=== PATIENT | female | born 1940 | race Caucasian/White ===

== ENCOUNTER 2018-01-20 13:48 | Emergency (ER) | payer OTHER ==
[~2018-01-20] VITALS: Ht 154.9 cm; Wt 54.0 kg
[~2018-01-20 13:48] MED LIST: BUPR150F3 SL; ESTR2TAB PO; FURO40TA4 PO; GABA-534 PO; LEVO25TA7 PO; METO5TAB98 PO; MUPI22OI30 TOP; OMEP20CA10 PO; OXYB5TAB11 PO; PHE25R PR; POLY17PO10 PO; RANI300T4 PO
[2018-01-20] MEDS ORDERED: magnesium citrate 296ml oral solution PO ONE (14:15)
[2018-01-20 15:04] VITALS: BP 126/75
== END 2018-01-20 15:22 | disposition home or self-care (01) ==
LOC: ER 13:49
DX: K59.00 Constipation, unspecified (principal); F11.20 Opioid dependence, uncomplicated; I10 Essential (primary) hypertension; G89.29 Other chronic pain; Z90.49 Acquired absence of other specified parts of digestive tract; Z90.710 Acquired absence of both cervix and uterus; Z88.5 Allergy status to narcotic agent; Z88.2 Allergy status to sulfonamides; Z98.890 Other specified postprocedural states
CPT/HCPCS: 74018; 99283

== ENCOUNTER 2018-05-10 00:27 | Emergency (ER) | payer OTHER ==
[~2018-05-10] VITALS: Ht 154.9 cm; Wt 48.8 kg
[2018-05-10] MEDS ORDERED: normal saline 1000ML IV soln IVB ONE (02:40)
[2018-05-10] MEDS ORDERED: ondansetron/PF 4mg/2ml inj IV ONE (02:40)
[2018-05-10] MEDS ORDERED: diphenoxylate/atropine tablet (Lomotil) PO ONE (02:40)
[2018-05-10 03:30] LABS: BASOPHILS % (AUTO) 0.6 % (0-1); EOSINOPHILS # (AUTO) 0.2 X10'3 (0-0.9); EOSINOPHILS % (AUTO) 3.9 % (0-6); HEMATOCRIT 32.2 % (35.0-45.0); HEMOGLOBIN 10.7 g/dl (12.0-16.0); LYMPHOCYTES # (AUTO) 2.2 X10'3 (1.1-4.8); LYMPHOCYTES % (AUTO) 48.7 % (21-51); MEAN CORPUSCULAR HEMOGLOBIN 31.7 PG (27.0-31.0); MEAN CORPUSCULAR HGB CONC 33.4 % (33.0-36.5); MEAN PLATELET VOLUME 8.5 FL (7.4-10.4); MONOCYTES # (AUTO) 0.5 X10'3 (0-0.9); MONOCYTES % (AUTO) 11.8 % (2-12); NEUTROPHILS # (AUTO) 1.6 X10'3 (1.8-7.7); PLATELET COUNT 242 X10'3 (140-440); RED BLOOD COUNT 3.38 X10'6 (4.20-5.60); RED CELL DISTRIBUTION WIDTH 13.4 % (11.5-14.5); WHITE BLOOD COUNT 4.6 X10'3 (4.5-11.0)
[2018-05-10 03:45] LABS: ALANINE AMINOTRANSFERASE 20 U/L (12-78); ALBUMIN/GLOBULIN RATIO 1.3 (1.1-1.5); ALKALINE PHOSPHATASE 75 IU/L (46-116); ANION GAP 4 (8-16); ASPARTATE AMINO TRANSFERASE 17 U/L (10-37); BILIRUBIN,TOTAL 0.2 MG/DL (0.1-1.0); BLOOD UREA NITROGEN 9 MG/DL (7-18); CALCIUM 7.9 MG/DL (8.5-10.1); CHLORIDE 107 MMOL/L (99-107); CREATININE 0.82 MG/DL (0.40-0.90); GLUCOSE 91 MG/DL (70-104); LIPASE 157 U/L (73-393); POTASSIUM 3.8 MMOL/L (3.5-5.1); SODIUM 138 MMOL/L (135-145); TOTAL CARBON DIOXIDE 26.7 MMOL/L (24-32); TOTAL PROTEIN 5.3 G/DL (6.4-8.2); eGFR 68 ML/MIN
[2018-05-10 04:36] VITALS: BP 111/59
== END 2018-05-10 05:21 | disposition home or self-care (01) ==
LOC: ER 00:27
DX: R19.7 Diarrhea, unspecified (principal); G89.29 Other chronic pain; I10 Essential (primary) hypertension; M19.90 Unspecified osteoarthritis, unspecified site; Z87.442 Personal history of urinary calculi; Z90.49 Acquired absence of other specified parts of digestive tract; Z90.710 Acquired absence of both cervix and uterus; Z98.890 Other specified postprocedural states; Z98.51 Tubal ligation status; Z87.891 Personal history of nicotine dependence; Z88.2 Allergy status to sulfonamides; Z88.6 Allergy status to analgesic agent; Z88.5 Allergy status to narcotic agent; Z79.899 Other long term (current) drug therapy
CPT/HCPCS: 36415; 80053; 83690; 85025; 96361; 96374; 99284; J2405; J7030

== ENCOUNTER 2019-01-01 10:28 | Emergency (ER) | payer OTHER ==
[~2019-01-01] VITALS: Ht 154.9 cm; Wt 50.0 kg
[~2019-01-01 10:28] MED LIST changes: +GABA-532 PO; +ONDA4TAB6 PO; +QUET400T PO
[2019-01-01] MEDS ORDERED: ketorolac trometh. 30mg/ml inj. IV ONE (13:00)
[2019-01-01] MEDS ORDERED: buprenorphine/naloxone 8mg/2mg SL tablet SL PRN (13:05)
[2019-01-01] MEDS ORDERED: ONDA4TAB6 PO (13:21)
[2019-01-01] MEDS ORDERED: TRAZ-218 PO (13:21)
[2019-01-01] MEDS ORDERED: CLON0.2T PO (13:21)
[2019-01-01] MEDS ORDERED: IBUP-1984 PO (13:21)
[2019-01-01 13:33] VITALS: BP 153/80
== END 2019-01-01 13:35 | disposition home or self-care (01) ==
LOC: ER 10:29
DX: G89.29 Other chronic pain (principal); M54.6 Pain in thoracic spine; M54.5 Low back pain; I10 Essential (primary) hypertension; M19.90 Unspecified osteoarthritis, unspecified site; Z87.442 Personal history of urinary calculi; Z90.49 Acquired absence of other specified parts of digestive tract; Z90.710 Acquired absence of both cervix and uterus; Z98.890 Other specified postprocedural states; Z98.51 Tubal ligation status; Z88.2 Allergy status to sulfonamides; Z88.5 Allergy status to narcotic agent; Z88.8 Allergy status to other drugs, medicaments and biological substances; Z79.899 Other long term (current) drug therapy
CPT/HCPCS: 96374; 99283; J1885

== ENCOUNTER 2019-01-10 07:42 | Emergency (ER) | payer OTHER ==
[~2019-01-10] VITALS: Ht 154.9 cm; Wt 50.2 kg
[~2019-01-10 07:42] MED LIST changes: +CLON0.2T PO; +IBUP-1984 PO; +TRAZ-218 PO
[2019-01-10] MEDS ORDERED: morphine 4 MG/ML inj SYRINge IV ONE (08:15)
[2019-01-10] MEDS ORDERED: normal saline 1000ML IV soln IVB ONE (08:15)
[2019-01-10] MEDS ORDERED: ondansetron/PF 4mg/2ml inj IV ONE (08:15)
--- NOTE | 2019-01-10 08:28 | NUR ---
Pt to CT via wheelchair
[2019-01-10 08:51] LABS: BASOPHILS # (AUTO) 0.1 X10'3 (0-0.2); EOSINOPHILS # (AUTO) 0.4 X10'3 (0-0.9); EOSINOPHILS % (AUTO) 6.9 % (0-6); HEMATOCRIT 37.8 % (35.0-45.0); HEMOGLOBIN 12.6 g/dl (12.0-16.0); LYMPHOCYTES # (AUTO) 3.1 X10'3 (1.1-4.8); LYMPHOCYTES % (AUTO) 60.2 % (21-51); MEAN CORPUSCULAR HEMOGLOBIN 31.5 PG (27.0-31.0); MEAN CORPUSCULAR HGB CONC 33.3 g/dL (33.0-36.5); MEAN CORPUSCULAR VOLUME 94.7 FL (78-98); MEAN PLATELET VOLUME 10.3 FL (7.4-10.4); MONOCYTES # (AUTO) 0.5 X10'3 (0-0.9); MONOCYTES % (AUTO) 9.2 % (2-12); NEUTROPHILS # (AUTO) 1.2 X10'3 (1.8-7.7); NEUTROPHILS % (AUTO) 22.7 % (42-75); PLATELET COUNT 203 X10'3 (140-440); RED BLOOD COUNT 3.99 X10'6 (4.20-5.60); RED CELL DISTRIBUTION WIDTH 13.3 % (11.5-14.5); WHITE BLOOD COUNT 5.1 X10'3 (4.5-11.0)
[2019-01-10] MEDS ORDERED: magnesium citrate 296ml oral solution PO ONE (08:55)
[2019-01-10 09:01] LABS: ALANINE AMINOTRANSFERASE 16 U/L (12-78); ALBUMIN 3.6 G/DL (3.4-5.0); ALBUMIN/GLOBULIN RATIO 1.2 (1.1-1.5); ALKALINE PHOSPHATASE 91 IU/L (46-116); ANION GAP 9 (8-16); ASPARTATE AMINO TRANSFERASE 23 U/L (10-37); BILIRUBIN,TOTAL 0.2 MG/DL (0.1-1.0); BLOOD UREA NITROGEN 15 MG/DL (7-18); BUN/CREATININE RATIO 16.7 (6.6-38.0); CALCIUM 8.9 MG/DL (8.5-10.1); CHLORIDE 104 MMOL/L (99-107); GLUCOSE 93 MG/DL (70-104); LIPASE 125 U/L (73-393); POTASSIUM 4.3 MMOL/L (3.5-5.1); SODIUM 140 MMOL/L (135-145); TOTAL CARBON DIOXIDE 27.4 MMOL/L (24-32); TOTAL PROTEIN 6.5 G/DL (6.4-8.2); eGFR 61 ML/MIN
[2019-01-10 09:04] LABS: CLARITY,URINE CLEAR (Clear); COLOR,URINE YELLOW (Yellow); GLUCOSE, URINE NEGATIVE (Neg); KETONES,URINE NEGATIVE (Neg); LEUKOCYTE ESTERASE ,URINE NEGATIVE (Neg); NITRITES, URINE NEGATIVE (Neg); OCCULT BLOOD,URINE NEGATIVE (Neg); PROTEIN,URINE NEGATIVE (Neg); UROBILINOGEN,URINE 0.2 E.U/dL (0.2-1.0)
[2019-01-10 09:07] LABS: INR 0.9 INR; PARTIAL THROMBOPLASTIN TIME 27 SECONDS (22-32)
[2019-01-10 09:11] LABS: UA COLLECTION TYPE CLN CATCH MIDSTREAM
[2019-01-10] MEDS ORDERED: POLY17PO10 PO (09:27)
[2019-01-10 10:00] VITALS: BP 140/72
== END 2019-01-10 10:03 | disposition home or self-care (01) ==
LOC: ER 07:43
DX: R10.84 Generalized abdominal pain (principal); I10 Essential (primary) hypertension; M19.90 Unspecified osteoarthritis, unspecified site; G89.29 Other chronic pain; Z87.11 Personal history of peptic ulcer disease; Z90.49 Acquired absence of other specified parts of digestive tract; Z90.710 Acquired absence of both cervix and uterus; Z98.890 Other specified postprocedural states; Z98.51 Tubal ligation status; Z88.2 Allergy status to sulfonamides; Z88.5 Allergy status to narcotic agent; Z88.6 Allergy status to analgesic agent; Z88.8 Allergy status to other drugs, medicaments and biological substances
CPT/HCPCS: 36415; 74176; 80053; 81003; 83690; 85025; 85610; 85730; 93005; 96374; 96375; 99284; J2270; J2405; J7030

== ENCOUNTER 2019-02-23 15:38 | Emergency (ER) | payer OTHER ==
[~2019-02-23] VITALS: Ht 154.9 cm; Wt 54.1 kg
[~2019-02-23 15:38] MED LIST changes: -IBUP-1984 PO; -OMEP20CA10 PO; +OMEP20CA11 PO; -TRAZ-218 PO; +TRAZ-251 PO
[2019-02-23 16:04] VITALS: BP 122/66
[2019-02-23] MEDS ORDERED: GABA300C PO (16:09)
== END 2019-02-23 16:22 | disposition home or self-care (01) ==
LOC: ER 15:39
DX: G40.909 Epilepsy, unspecified, not intractable, without status epilepticus (principal); Z76.0 Encounter for issue of repeat prescription; I10 Essential (primary) hypertension; M19.90 Unspecified osteoarthritis, unspecified site; G89.29 Other chronic pain; Z98.51 Tubal ligation status; Z90.49 Acquired absence of other specified parts of digestive tract; Z90.710 Acquired absence of both cervix and uterus; Z98.890 Other specified postprocedural states; Z88.2 Allergy status to sulfonamides; Z88.5 Allergy status to narcotic agent; Z88.8 Allergy status to other drugs, medicaments and biological substances; Z79.899 Other long term (current) drug therapy
CPT/HCPCS: 99283

== ENCOUNTER 2019-03-02 19:25 | Emergency (ER) | payer OTHER ==
[~2019-03-02] VITALS: Ht 154.9 cm; Wt 49.5 kg
[~2019-03-02 19:25] MED LIST changes: +GABA300C PO
[2019-03-02 19:36] VITALS: BP 122/76
== END 2019-03-02 20:36 | disposition home or self-care (01) ==
LOC: ER 19:28
DX: G89.29 Other chronic pain (principal); M54.9 Dorsalgia, unspecified; Z76.0 Encounter for issue of repeat prescription; I10 Essential (primary) hypertension; M19.90 Unspecified osteoarthritis, unspecified site; Z90.49 Acquired absence of other specified parts of digestive tract; Z90.710 Acquired absence of both cervix and uterus; Z98.890 Other specified postprocedural states; Z98.51 Tubal ligation status; Z88.2 Allergy status to sulfonamides; Z88.5 Allergy status to narcotic agent; Z88.8 Allergy status to other drugs, medicaments and biological substances; Z79.899 Other long term (current) drug therapy
CPT/HCPCS: 99281

== ENCOUNTER 2019-11-02 06:50 | Emergency (ER) | payer OTHER ==
[~2019-11-02] VITALS: Ht 154.9 cm; Wt 47.7 kg
[~2019-11-02 06:50] MED LIST changes: -OMEP20CA11 PO; +OMEP20CA15 PO; -OXYB5TAB11 PO; +OXYB5TAB16 PO
[2019-11-02] MEDS ORDERED: normal saline 1000ml 1,000 ML IV ONE (06:57)
[2019-11-02 07:30] LABS: BASOPHILS % (AUTO) 0.6 % (0-1); EOSINOPHILS # (AUTO) 0.2 X10'3 (0-0.9); EOSINOPHILS % (AUTO) 4.4 % (0-6); HEMATOCRIT 39.7 % (35.0-45.0); HEMOGLOBIN 13.4 g/dl (12.0-16.0); LYMPHOCYTES # (AUTO) 2.9 X10'3 (1.1-4.8); LYMPHOCYTES % (AUTO) 54.5 % (21-51); MEAN CORPUSCULAR HEMOGLOBIN 31.4 PG (27.0-31.0); MEAN CORPUSCULAR HGB CONC 33.8 g/dL (33.0-36.5); MEAN CORPUSCULAR VOLUME 92.9 FL (78-98); MEAN PLATELET VOLUME 9.2 FL (7.4-10.4); MONOCYTES # (AUTO) 0.5 X10'3 (0-0.9); MONOCYTES % (AUTO) 9.2 % (2-12); NEUTROPHILS # (AUTO) 1.7 X10'3 (1.8-7.7); NEUTROPHILS % (AUTO) 31.3 % (42-75); PLATELET COUNT 263 X10'3 (140-440); RED BLOOD COUNT 4.27 X10'6 (4.20-5.60); RED CELL DISTRIBUTION WIDTH 13.6 % (11.5-14.5); WHITE BLOOD COUNT 5.4 X10'3 (4.5-11.0)
[2019-11-02 07:40] LABS: ALANINE AMINOTRANSFERASE 17 U/L (12-78); ALBUMIN 3.4 G/DL (3.4-5.0); ALBUMIN/GLOBULIN RATIO 1.1 (1.1-1.5); ALKALINE PHOSPHATASE 105 IU/L (46-116); ANION GAP 5 (8-16); ASPARTATE AMINO TRANSFERASE 23 U/L (10-37); BILIRUBIN,TOTAL 0.1 MG/DL (0.1-1.0); BLOOD UREA NITROGEN 19 MG/DL (7-18); BUN/CREATININE RATIO 23.5 (6.6-38.0); CALCIUM 8.3 MG/DL (8.5-10.1); CHLORIDE 104 MMOL/L (99-107); CREATININE 0.81 MG/DL (0.40-0.90); GLUCOSE 100 MG/DL (70-104); POTASSIUM 3.8 MMOL/L (3.5-5.1); SODIUM 141 MMOL/L (135-145); TOTAL CARBON DIOXIDE 32.5 MMOL/L (24-32); TOTAL PROTEIN 6.6 G/DL (6.4-8.2); eGFR 68 ML/MIN
[2019-11-02 07:43] LABS: PARTIAL THROMBOPLASTIN TIME 26 SECONDS (22-32)
[2019-11-02 08:08] LABS: CLARITY,URINE CLEAR (Clear); COLOR,URINE YELLOW (Yellow); GLUCOSE, URINE NEGATIVE (Neg); KETONES,URINE NEGATIVE (Neg); LEUKOCYTE ESTERASE ,URINE NEGATIVE (Neg); NITRITES, URINE NEGATIVE (Neg); OCCULT BLOOD,URINE NEGATIVE (Neg); PH,URINE 6.5 (4.8-8.0); PROTEIN,URINE NEGATIVE (Neg); UA COLLECTION TYPE STRAIGHT CATH; UROBILINOGEN,URINE 0.2 E.U/dL (0.2-1.0)
[2019-11-02] MEDS ORDERED: normal saline 1000ML IV soln IVB ONE (08:40)
[2019-11-02] MEDS ORDERED: bisacodyl 10mg suppository rectal RC ONE (08:40)
[2019-11-02 08:45] LABS: TOTAL CELLS COUNTED 100
[2019-11-02] MEDS ORDERED: methylnaltrexone br 12mg/0.6ml inj***SubQ only SQ ONE (08:45)
[2019-11-02] MEDS ORDERED: magnesium citrate 296ml oral solution PO ONE (08:45)
[2019-11-02 08:54] LABS: PLATELET ESTIMATE NORMAL
[2019-11-02 09:07] LABS: URINE AMPHETAMINE SCREEN NEGATIVE (Neg); URINE BARBITUATE SCREEN NEGATIVE (Neg); URINE BENZODIAZEPINES SCREEN NEGATIVE (Neg); URINE CANNABINOID SCREEN NEGATIVE (Neg); URINE COCAINE SCREEN NEGATIVE (Neg); URINE METHADONE SCREEN NEGATIVE (Neg); URINE OPIATE SCREEN NEGATIVE (Neg); URINE PHENCYCLIDINE SCREEN NEGATIVE (Neg)
--- NOTE | 2019-11-02 11:31 | NUR ---
.Notified AFSHIN Li pt successful with BM attempt. She c/o nausea;new order for Zofran received
[2019-11-02] MEDS ORDERED: ondansetron/PF 4mg/2ml inj IV ONE ×2 (11:35)
[2019-11-02 11:56] VITALS: BP 115/71
== END 2019-11-02 11:58 | disposition home or self-care (01) ==
LOC: ER 06:53
DX: K59.00 Constipation, unspecified (principal); R10.30 Lower abdominal pain, unspecified; R30.0 Dysuria; G89.29 Other chronic pain; I10 Essential (primary) hypertension; M19.90 Unspecified osteoarthritis, unspecified site; Z87.442 Personal history of urinary calculi; Z90.49 Acquired absence of other specified parts of digestive tract; Z90.710 Acquired absence of both cervix and uterus; Z98.51 Tubal ligation status; Z98.890 Other specified postprocedural states; Z88.2 Allergy status to sulfonamides; Z88.5 Allergy status to narcotic agent; Z88.8 Allergy status to other drugs, medicaments and biological substances; Z79.899 Other long term (current) drug therapy
CPT/HCPCS: 36415; 74018; 80053; 80305; 81003; 85025; 85610; 85730; 96372; 96374; 99284; J2212; J2405; J7030

== ENCOUNTER 2019-11-04 10:53 | Emergency (ER) | payer OTHER ==
[~2019-11-04] VITALS: Ht 154.9 cm; Wt 47.4 kg
[2019-11-04 12:04] LABS: CLARITY,URINE CLEAR (Clear); COLOR,URINE YELLOW (Yellow); GLUCOSE, URINE NEGATIVE (Neg); KETONES,URINE NEGATIVE (Neg); LEUKOCYTE ESTERASE ,URINE TRACE (Neg); NITRITES, URINE NEGATIVE (Neg); OCCULT BLOOD,URINE TRACE-INTACT (Neg); PH,URINE 7.5 (4.8-8.0); PROTEIN,URINE NEGATIVE (Neg); UROBILINOGEN,URINE 0.2 E.U/dL (0.2-1.0)
[2019-11-04 12:09] LABS: UA COLLECTION TYPE CLN CATCH MIDSTREAM
[2019-11-04 12:12] LABS: BACTERIA,URINE 1+ /HPF (Neg); MUCUS STRANDS NONE SEEN /LPF (Neg); RBC,URINE 0-2 /HPF (0-2); SQUAMOUS EPITHELIAL CELL,UR MODERATE /LPF (FEW); WBC,URINE 0-4 /HPF (0-4)
[2019-11-04 12:13] LABS: YEAST FEW /HPF (NEGATIVE)
[2019-11-04] MEDS ORDERED: mag hydrox/Alum hydrox/simeth 30ml oral suspension PO ONE (12:35)
[2019-11-04] MEDS ORDERED: famotidine 20mg tablet PO ONE (12:35)
[2019-11-04] MEDS ORDERED: QUET400T PO (12:37)
[2019-11-04] MEDS ORDERED: LIDOcaine Viscous 15ml cup MM PRN (12:45)
[2019-11-04] MEDS ORDERED: SUCR1TAB34 PO (13:17)
[2019-11-04 13:45] VITALS: BP 139/98
== END 2019-11-04 13:47 | disposition home or self-care (01) ==
LOC: ER 10:53
DX: K29.70 Gastritis, unspecified, without bleeding (principal); I10 Essential (primary) hypertension; M19.90 Unspecified osteoarthritis, unspecified site; G89.29 Other chronic pain; F41.9 Anxiety disorder, unspecified; Z90.49 Acquired absence of other specified parts of digestive tract; Z98.890 Other specified postprocedural states; Z90.710 Acquired absence of both cervix and uterus; Z98.51 Tubal ligation status; Z88.2 Allergy status to sulfonamides; Z88.5 Allergy status to narcotic agent; Z88.8 Allergy status to other drugs, medicaments and biological substances; Z79.899 Other long term (current) drug therapy
CPT/HCPCS: 74018; 81001; 87088; 99284

== ENCOUNTER 2020-06-25 14:52 | Emergency (ER) | payer OTHER ==
[~2020-06-25] VITALS: Ht 154.9 cm; Wt 46.4 kg
[~2020-06-25 14:52] MED LIST changes: +SUCR1TAB34 PO
[2020-06-25 15:13] VITALS: BP 117/53
[2020-06-25] MEDS ORDERED: HYDR-4383 PO (16:08)
== END 2020-06-25 16:26 | disposition home or self-care (01) ==
LOC: ER 14:53
DX: S46.219A Strain of muscle, fascia and tendon of other parts of biceps, unspecified arm, initial encounter (principal); I10 Essential (primary) hypertension; M19.90 Unspecified osteoarthritis, unspecified site; G89.29 Other chronic pain; F41.9 Anxiety disorder, unspecified; Z90.49 Acquired absence of other specified parts of digestive tract; Z90.710 Acquired absence of both cervix and uterus; Z98.890 Other specified postprocedural states; Z88.2 Allergy status to sulfonamides; Z88.5 Allergy status to narcotic agent; Z88.8 Allergy status to other drugs, medicaments and biological substances; Z79.899 Other long term (current) drug therapy
CPT/HCPCS: 99282; 99283

== ENCOUNTER 2020-10-06 15:20 | Emergency (ER) | payer OTHER ==
[~2020-10-06] VITALS: Ht 154.9 cm; Wt 46.4 kg
[~2020-10-06 15:20] MED LIST changes: +HYDR-4383 PO
[2020-10-06 17:25] VITALS: BP 140/56
== END 2020-10-06 17:14 | disposition home or self-care (01) ==
LOC: ER 15:21
DX: M54.81 Occipital neuralgia (principal); I10 Essential (primary) hypertension; M19.90 Unspecified osteoarthritis, unspecified site; G89.29 Other chronic pain; F41.9 Anxiety disorder, unspecified; Z87.442 Personal history of urinary calculi; Z90.49 Acquired absence of other specified parts of digestive tract; Z90.710 Acquired absence of both cervix and uterus; Z98.890 Other specified postprocedural states; Z98.51 Tubal ligation status; Z88.2 Allergy status to sulfonamides; Z88.5 Allergy status to narcotic agent; Z88.8 Allergy status to other drugs, medicaments and biological substances; Z79.899 Other long term (current) drug therapy
CPT/HCPCS: 20552; 36415; 64405; 85651; 99284

== ENCOUNTER 2021-01-16 15:34 | Emergency (ER) | payer OTHER ==
[~2021-01-16] VITALS: Ht 154.9 cm; Wt 47.0 kg
[2021-01-16 16:10] VITALS: BP 126/74
[2021-01-16] MEDS ORDERED: acetaminophen 325mg tablet PO ONE (17:25)
== END 2021-01-16 17:43 | disposition home or self-care (01) ==
LOC: ER 15:35
DX: R51.9 Headache, unspecified (principal); I10 Essential (primary) hypertension; M19.90 Unspecified osteoarthritis, unspecified site; G89.29 Other chronic pain; F41.9 Anxiety disorder, unspecified; Z87.11 Personal history of peptic ulcer disease; Z87.442 Personal history of urinary calculi; Z87.440 Personal history of urinary (tract) infections; Z90.89 Acquired absence of other organs; Z90.49 Acquired absence of other specified parts of digestive tract; Z90.710 Acquired absence of both cervix and uterus; Z98.890 Other specified postprocedural states; Z88.2 Allergy status to sulfonamides; Z88.5 Allergy status to narcotic agent; Z88.1 Allergy status to other antibiotic agents; Z98.51 Tubal ligation status; Z79.899 Other long term (current) drug therapy
CPT/HCPCS: 20552; 99284

== ENCOUNTER 2021-05-22 15:36 | Emergency (ER) | payer OTHER ==
[~2021-05-22] VITALS: Ht 154.9 cm; Wt 46.0 kg
[2021-05-22 16:08] VITALS: BP 130/90
[2021-05-22] MEDS ORDERED: VALA100031 PO (16:15)
== END 2021-05-22 16:31 | disposition home or self-care (01) ==
LOC: ER 15:37
DX: B02.9 Zoster without complications (principal); I10 Essential (primary) hypertension; M19.90 Unspecified osteoarthritis, unspecified site; G89.29 Other chronic pain; Z87.11 Personal history of peptic ulcer disease; Z87.440 Personal history of urinary (tract) infections; Z87.442 Personal history of urinary calculi; Z90.49 Acquired absence of other specified parts of digestive tract; Z90.710 Acquired absence of both cervix and uterus; Z98.82 Breast implant status; Z88.2 Allergy status to sulfonamides; Z88.8 Allergy status to other drugs, medicaments and biological substances; Z79.899 Other long term (current) drug therapy
CPT/HCPCS: 99283

== ENCOUNTER 2021-07-06 17:44 | Emergency (ER) | payer OTHER ==
[~2021-07-06] VITALS: Ht 154.9 cm; Wt 47.7 kg
[~2021-07-06 17:44] MED LIST changes: -ESTR2TAB PO; +ESTR2TAB50 PO; +VALA100031 PO
[2021-07-06 17:55] VITALS: BP 150/69
== END 2021-07-06 20:17 | disposition home or self-care (01) ==
LOC: ER 17:45
DX: S63.502A Unspecified sprain of left wrist, initial encounter (principal); S09.90XA Unspecified injury of head, initial encounter; S60.512A Abrasion of left hand, initial encounter; M25.532 Pain in left wrist; I10 Essential (primary) hypertension; M19.90 Unspecified osteoarthritis, unspecified site; G89.29 Other chronic pain; F41.9 Anxiety disorder, unspecified; Z87.11 Personal history of peptic ulcer disease; Z87.442 Personal history of urinary calculi; Z87.440 Personal history of urinary (tract) infections; Z90.89 Acquired absence of other organs; Z90.49 Acquired absence of other specified parts of digestive tract; Z90.710 Acquired absence of both cervix and uterus; Z98.890 Other specified postprocedural states; Z98.51 Tubal ligation status; Z88.2 Allergy status to sulfonamides; Z88.5 Allergy status to narcotic agent; Z88.1 Allergy status to other antibiotic agents; Z79.2 Long term (current) use of antibiotics; Z79.899 Other long term (current) drug therapy; W18.09XA Striking against other object with subsequent fall, initial encounter; Y93.89 Activity, other specified; Y92.89 Other specified places as the place of occurrence of the external cause; Y99.8 Other external cause status
CPT/HCPCS: 29125; 70450; 72125; 73110; 99285

== ENCOUNTER 2022-04-23 19:45 | Emergency (ER) | payer OTHER, MEDICARE ==
[~2022-04-23] VITALS: Ht 154.9 cm; Wt 47.7 kg
[2022-04-23 20:07] VITALS: BP 132/112
[2022-04-23] MEDS ORDERED: ondansetron/PF 4mg/2ml inj IV ONE (20:55)
[2022-04-23] MEDS ORDERED: buprenorphine/naloxone 8MG-2MG SUBlingual film SL STA ×2 (22:09→22:23)
[2022-04-23] MEDS ORDERED: gabapentin 300mg capsule PO ONE (22:10)
[2022-04-23] MEDS ORDERED: GABA600T PO (22:14)
== END 2022-04-24 04:14 | disposition home or self-care (01) ==
LOC: ER 19:46
DX: F11.23 Opioid dependence with withdrawal (principal); I10 Essential (primary) hypertension; M19.90 Unspecified osteoarthritis, unspecified site; G89.29 Other chronic pain; M54.50 Low back pain, unspecified; Z76.0 Encounter for issue of repeat prescription; Z88.2 Allergy status to sulfonamides; Z88.5 Allergy status to narcotic agent; Z88.6 Allergy status to analgesic agent; Z98.890 Other specified postprocedural states; Z90.49 Acquired absence of other specified parts of digestive tract; Z90.710 Acquired absence of both cervix and uterus; Z98.51 Tubal ligation status
CPT/HCPCS: 96374; 99284; J2405; A4620

== ENCOUNTER 2023-04-05 08:33 | Emergency (ER) | payer OTHER ==
[~2023-04-05] VITALS: Ht 154.9 cm; Wt 48.0 kg
[~2023-04-05 08:33] MED LIST changes: +GABA600T PO
[2023-04-05 08:37] VITALS: BP 91/74
[2023-04-05] MEDS ORDERED: mupirocin 2% ointment 22GM TP STA (09:16)
[2023-04-05] MEDS ORDERED: MUPI22OI30 TOP (09:24)
== END 2023-04-05 10:25 | disposition home or self-care (01) ==
LOC: ER 08:34
DX: T21.11XA Burn of first degree of chest wall, initial encounter (principal); I10 Essential (primary) hypertension; M19.90 Unspecified osteoarthritis, unspecified site; Z88.2 Allergy status to sulfonamides; Z88.5 Allergy status to narcotic agent; Z90.710 Acquired absence of both cervix and uterus; Z98.51 Tubal ligation status; Z98.890 Other specified postprocedural states; X10.1XXA Contact with hot food, initial encounter; Y93.89 Activity, other specified; Y92.89 Other specified places as the place of occurrence of the external cause; Y99.8 Other external cause status
CPT/HCPCS: 16000; 99283

== ENCOUNTER 2023-05-03 18:48 | Emergency (ER) | payer OTHER ==
[~2023-05-03] VITALS: Ht 154.9 cm; Wt 109.2 kg
[~2023-05-03 18:48] MED LIST changes: -GABA-534 PO; +GABA-535 PO
[2023-05-03 19:57] VITALS: TEMP 98.3
[2023-05-03 20:35] LABS: BASOPHILS % (AUTO) 0.4 % (0-1); EOSINOPHILS % (AUTO) 0.6 % (0-6); HEMATOCRIT 34.1 % (35.0-45.0); HEMOGLOBIN 11.3 g/dl (12.0-16.0); LYMPHOCYTES # (AUTO) 0.7 X10'3 (1.1-4.8); LYMPHOCYTES % (AUTO) 14.4 % (21-51); MEAN CORPUSCULAR HEMOGLOBIN 30.8 PG (27.0-31.0); MEAN CORPUSCULAR HGB CONC 33.2 g/dL (33.0-36.5); MEAN CORPUSCULAR VOLUME 92.7 FL (78-98); MEAN PLATELET VOLUME 8.6 FL (7.4-10.4); MONOCYTES # (AUTO) 0.3 X10'3 (0-0.9); MONOCYTES % (AUTO) 6.6 % (2-12); PLATELET COUNT 297 X10'3 (140-440); RED BLOOD COUNT 3.68 X10'6 (4.20-5.60); WHITE BLOOD COUNT 5.2 X10'3 (4.5-11.0)
[2023-05-03 20:40] LABS: BILIRUBIN,URINE NEGATIVE (Neg); CLARITY,URINE SLIGHTLY CLOUDY (Clear); COLOR,URINE YELLOW (Yellow); GLUCOSE, URINE NEGATIVE (Neg); KETONES,URINE TRACE mg/dl (Neg); LEUKOCYTE ESTERASE ,URINE NEGATIVE (Neg); NITRITES, URINE NEGATIVE (Neg); OCCULT BLOOD,URINE TRACE-INTACT (Neg); PH,URINE 5.5 (4.8-8.0); PROTEIN,URINE NEGATIVE (Neg); UROBILINOGEN,URINE 0.2 E.U/dL (0.2-1.0)
[2023-05-03 20:46] LABS: UA COLLECTION TYPE CLN CATCH MIDSTREAM
[2023-05-03 20:48] LABS: BACTERIA,URINE FEW /HPF (Neg); RBC,URINE 0-2 /HPF (0-2); SQUAMOUS EPITHELIAL CELL,UR MANY /LPF (FEW); WBC,URINE 0-4 /HPF (0-4)
[2023-05-03 20:49] LABS: YEAST FEW /HPF (NEGATIVE)
[2023-05-03 21:00] LABS: ALANINE AMINOTRANSFERASE 20 U/L (12-78); ALBUMIN 3.5 G/DL (3.4-5.0); ALBUMIN/GLOBULIN RATIO 1.1 (1.1-1.5); ALKALINE PHOSPHATASE 120 IU/L (46-116); ANION GAP 9 (8-16); ASPARTATE AMINO TRANSFERASE 35 U/L (10-37); BILIRUBIN,TOTAL 0.2 MG/DL (0.1-1.0); BLOOD UREA NITROGEN 10 MG/DL (7-18); BUN/CREATININE RATIO 14.7 (10.0-20.0); CALCIUM 8.8 MG/DL (8.5-10.1); CHLORIDE 105 MMOL/L (99-107); CREATININE 0.68 MG/DL (0.40-0.90); GLUCOSE 122 MG/DL (70-104); LIPASE 85 U/L (73-393); POTASSIUM 3.8 MMOL/L (3.5-5.1); SODIUM 141 MMOL/L (135-145); TOTAL CARBON DIOXIDE 27.4 MMOL/L (24-32); TOTAL PROTEIN 6.6 G/DL (6.4-8.2); eCRCL 48 ML/MIN; eGFR 83 ML/MIN
--- NOTE | 2023-05-03 21:01 | NUR ---
PT HAS BEEN EDUCATED ON THE RISK OF GETTING OUT OF BED D/T HER SLIGHT WEAKNESS. PT IS REFUSING TO STAY IN THE BED OR SIT DOWN.
[2023-05-03] MEDS ORDERED: ondansetron/PF 4mg/2ml inj IV ONE (21:15)
[2023-05-03] MEDS ORDERED: LORazepam 2 mg/ml vial IV ONE (21:15)
[2023-05-03] MEDS ORDERED: morphine 2 MG/ML inj. syringe IV ONE (21:15)
[2023-05-03 23:49] VITALS: BP 140/67; PULSE 83; RESP 16; O2SAT 95
[2023-05-04 05:39] LABS: OCCULT BLOOD STOOL NEGATIVE (Neg)
== END 2023-05-04 00:09 | disposition home or self-care (01) ==
LOC: ER 18:49
DX: R19.7 Diarrhea, unspecified (principal); M54.9 Dorsalgia, unspecified; R10.84 Generalized abdominal pain; I10 Essential (primary) hypertension; M19.90 Unspecified osteoarthritis, unspecified site; Z88.2 Allergy status to sulfonamides; Z88.5 Allergy status to narcotic agent; Z79.899 Other long term (current) drug therapy; Z98.890 Other specified postprocedural states; Z90.710 Acquired absence of both cervix and uterus; Z90.49 Acquired absence of other specified parts of digestive tract; Z98.51 Tubal ligation status
CPT/HCPCS: 36415; 74176; 80053; 81001; 82272; 83690; 85025; 96374; 96375; 99285; J2060; J2270; J2405

== ENCOUNTER 2025-07-17 15:40 | Emergency (ER) | payer OTHER ==
[~2025-07-17] VITALS: Ht 165.1 cm; Wt 58.0 kg
[~2025-07-17 15:40] MED LIST changes: -BUPR150F3 SL; +BUPR900F3 PO; +CHOL125C6 PO; -CLON0.2T PO; +DOCU-148 PO; -ESTR2TAB50 PO; -FURO40TA4 PO; -GABA-532 PO; -GABA-535 PO; -GABA300C PO; -HYDR-4383 PO; -LEVO25TA7 PO; +LEVO50TA8 PO; +LINA145C PO; +MAGN400O6 PO; -METO5TAB98 PO; -MUPI22OI30 TOP; -OMEP20CA15 PO; -ONDA4TAB6 PO; -OXYB5TAB16 PO; +OXYB5TAB21 PO; -PHE25R PR; -POLY17PO10 PO; +PSYL0.4C2 PO; +RABE20TA32 PO; -RANI300T4 PO; -SUCR1TAB34 PO; -TRAZ-251 PO; -VALA100031 PO
--- NOTE | 2025-07-17 15:58 | Physician Documentation ---
History of Present Illness ~ Chief Complaint: Ingestion Error Stated Complaint: GENERAL MALAISE Time Seen by MD: 15:44 OK to notify your PCP?: Yes Primary Medical Doctor: meggan Source: patient, RN/, RN notes reviewed, old records Mode of Arrival: EMS Exam Limitations: no limitations HPI This patient is an 84 y/o female BIBEMS to ED for medication error. Patient reportedly took two of her prescribed 400mg Seroquel this afternoon, stating she was having trouble sleeping. She denies any intent of self harm. Patient having some generalized weakness and nausea but denies any vomiting or other symptoms. Patient denies having a rest room matron and denies any cardiac history that she knows of. Patient does live at home alone, however does receive help from family and EMS state that her living conditions seemed well taken care of. Patient denies any other associated symptoms at this time. Patient denies any other alleviating or exacerbating factors. Medication Reconciliation Allergies: Coded Allergies: Sulfa (Sulfonamide Antibiotics) (Verified Allergy, Unknown, 07/17/25) codeine (Verified Allergy, Unknown, 04/05/23) ketoconazole (Verified Allergy, Unknown, 04/05/23) Scheduled Buprenorphine HCl (Belbuca), 1 STRIP PO BID, (Reported) Cholecalciferol (Vitamin D3) (Vitamin D3 Max), 1 CAP PO DAILY, (Reported) Docusate Sodium (Colace), 1 CAP PO Q12H Gabapentin (Neurontin), 1 TAB PO Q8H Levothyroxine Sodium (Levothyroxine Sodium), 1 TAB PO DAILY, (Reported) Linaclotide (Linzess), 1 CAP PO DAILY, (Reported) Magnesium Hydroxide (Milk of Magnesia), 5 ML PO Q12H Oxybutynin Chloride (Oxybutynin Chloride), 5 MG PO DAILY, (Reported) Psyllium Husk (Metamucil), 1 CAP PO Q12H Quetiapine Fumarate (Seroquel), 1 TAB PO HS Rabeprazole Sodium (Rabeprazole Sodium), 1 TAB PO QAM, (Reported) Past Medical History Past Medical History: Hypertension, Constipation, Diverticulitis, Peptic Ulcer Disease, Kidney Stones, UTI, Arthritis, Chronic Pain, Chronic Back Pain, Anxiety Past Surgical History: abdominal surgery, appendectomy, cholecystectomy, hysterectomy, orthopedic surgeries, tubal ligation, other Other Past Surgical History: multiple back surgeries, breast reduction Other Past Family History: none Smoking Status: Never smoker Alcohol Use: None Drug Use: none Lives with: Family Lives In: Home Occupation: retired Review of Systems All Other Systems at this time: Reviewed and Negative Physical Exam Vital Signs: RN Vital Signs have been reviewed: Yes Physical Exam General: The patient is well developed, well nourished, nontoxic appearing and is in no acute distress. Skin: [place], warm and dry with no rashes. HEENT: Dry mucous membranes. Head was normocephalic and atraumatic. Eyes - pupils equal, round, reactive to light and accommodation. Extraocular movements were intact. Conjunctivae were nonicteric. The mouth and oropharynx were clear. There were no pharyngeal exudates or erythema. Neck: Supple and nontender. There was no jugular venous distention, lymphadenopathy, thyromegaly or masses. Chest: Clear to auscultation bilaterally without wheezes, rales or rhonchi. No accessory muscle use. No dullness to percussion. Heart: Rate regular and rhythmic. S1, S2. No murmurs. Palpation of the chest wall was normal. No rubs or thrills. Abdomen: Soft, nontender and nondistended. Positive bowel sounds. No guarding or rebound. No hepatosplenomegaly or palpable masses. Extremities: No cyanosis, clubbing or edema. The patient moves all extremities. Pulses were equal and symmetric. Neurologic: Cranial nerves II-XII were intact. Sensation was intact to light touch throughout. Motor strength was 5/5 in all four extremities. Deep tendon reflexes were intact in both upper and lower extremities. Psychologic: The patient was oriented to person, place and time. The patient demonstrated appropriate judgement and insight. Progress Progress Note 1635: Patient consented verbally for surgery through energy project manager at bedside. Results/Orders Reviewed/noted all lab results: Yes Results/Orders Orders - JOSÉ MIGUEL LI MD Urinalysis, Cult If Indicated (07/17/25 15:44) Chest,Single View (07/17/25 15:44) Electrocardiogram (07/17/25 15:44) Completed Orders - JOSÉ MIGUEL LI MD Cbc/Diff (07/17/25 15:44) MG (07/17/25 15:44) Lipase (07/17/25 15:44) Pt Inr (07/17/25 15:44) PTT (07/17/25 15:44) PBNP (07/17/25 15:44) Chest,Single View (07/17/25 15:44) Ethanol (07/17/25 15:44) Electrocardiogram (07/17/25 15:44) BMP (07/17/25 15:44) Hs Troponin I W Calculations (07/17/25 15:44) Vital Signs 07/17/25 07/17/25 15:52 17:40 Temp 97.8 97.9 Pulse 120 98 Resp 16 16 B/P (MAP) 134/77 135/82 (99) Pulse Ox 97 93 O2 Flow Rate 0 0 Laboratory Tests Test 07/17/25 16:10 07/17/25 17:07 White Blood Count 4.3 L Red Blood Count 2.98 L Hemoglobin 10.6 L Hematocrit 31.4 L Mean Corpuscular Volume 105.2 H Mean Corpuscular Hemoglobin 35.5 H Mean Corpuscular Hemoglobin Concent 33.7 Red Cell Distribution Width 16.0 H Platelet Count 203 Mean Platelet Volume 8.2 Neutrophils (%) (Auto) 76.1 H Lymphocytes (%) (Auto) 15.3 L Monocytes (%) (Auto) 7.0 Eosinophils (%) (Auto) 1.0 Basophils (%) (Auto) 0.6 Neutrophils # (Auto) 3.3 Lymphocytes # (Auto) 0.7 L Monocytes # (Auto) 0.3 Eosinophils # (Auto) 0.0 Basophils # (Auto) 0.0 CBC Comment Sodium Level 137 Potassium Level 3.5 Chloride Level 103 Carbon Dioxide Level 26.9 Anion Gap 7 L Blood Urea Nitrogen 10 Creatinine 1.02 H Estimated GFR/1.73 m2 52 BUN/Creatinine Ratio 9.8 L Glucose Level 156 H Calcium Level 7.8 L Magnesium Level 1.8 Troponin I High Sensitivity 14 Pro-B-Type Natriuretic Peptide 364 Albumin 2.8 L Lipase 18 Chemistry Comments Ethyl Alcohol Level < 10 Prothrombin Time 10.8 INR International Normalized Ratio 1.1 Activated Partial Thromboplast Time 26 Coagulation Comments Re-Evaluation Re-Evaluation : Re-Evaluation: Unchanged Progress Patient looks quite dry. Patient overdosed on her Seroquel taking 800 mg but she is alert smiling. She normally takes 400 in his habituated to these medications. Laboratory work was obtained. Her CBC shows a white count of 4.3 hemoglobin 10 hematocrit 31 with increasing MCV of 105. Patient has no history of alcohol use. Most likely poor nutrition. Chemistry was within normal limits. Calcium slightly low at 7.8 BUN creatinine ratio at 9.8 but clinically the patient is seemed dry troponin negative. Coagulation within normal limits tox screen negative for alcohol. After a L bolus patient is seemed to be doing much better. Patient son came states that she is looking better now that she has been hydrated. Son is requesting that the patient be discharged states that she is at her baseline he can take care of over does not require admission. I d id offer additional hydration for the patient and management. Patient however will be discharged home. Poison control was also contacted in her dose he is not that concerning as long as her mentation is within normal limits which it is. Continuous environmental monitoring specialist interpretation shows initially sinus tachycardia heart rate 120s, currently heart rate 90s, normal, my interpretation. Pulse oximetry monitor interpretation shows normal oxygenation 95% room air, normal, my interpretation. EKG/XRAY/CT/US/VASC/MRI EKG : Intepreting Monitor?: Yes Additional Comment [address] [address] ELECTROCARDIOGRAM Patient: THANIA HOBBS Medical Record: [id number] [facility] : 1940, Age: 84Sex: F Location: ER Patient Status: REG ER Service Date/Time: [id number] Ordering Physician: JOSÉ MIGUEL LI MD Exam Name: ELECTROCARDIOGRAM Technologist: [facility] Test Date: 2025-07-17 Test Time: 15:56:03 Pat Name: THANIA VENEGASFLY Department: [facility]-ER Patient ID: [id number] Room: Gender: F Automotive Technician: DT : 1940 Requested By: JOSÉ MIGUEL LI Order Number: [id number] Reading MD: Dr. José Miguel Li Measurements Intervals [place] Rate: 114 P: 67 PA: 176 QRS: 20 QRSD: 92 T: 82 QT: 352 QTc: 485 Interpretive Statements Sinus tachycardia Atrial premature complexes Electronically Signed On 07-17-2025 16:11:[address] José Miguel Li Please click the below link to view image of tracing. EKG Date and Time:07/17/25 1556 Electronically Signed by: JOSÉ MIGUEL LI MD Date and Time: 07/17/25 1611 NO PRIMARY CARE PROVIDER~ cc: ~ Chest X-Ray : Interpreted By: both Additional Comments [address] [address] DIAGNOSTIC RADIOLOGY Patient: THANIA HOBBS Medical Record: [id number] [facility] : 1940, Age: 84 Sex: Female Location: ER Patient Status: [facility] ER Service Date/Time: 07/17/251543 Ordering Physician: JOSÉ MIGUEL LI MD Exam: CHEST,SINGLE VIEW CHEST RADIOGRAPH Indication: CHEST PAIN Technique: DI CHEST,SINGLE VIEW COMPARISON: None FINDINGS: The cardiac silhouette is enlarged. The lungs demonstrate bilateral patchy airspace opacities. The pulmonary vasculature is prominent. Small bilateral pleural effusions. Elevation right hemidiaphragm. There is no pneumothorax. IMPRESSION: As above Electronically Signed by:ANGEL BOOTHE MD Date & Time: 07/17/251636 Dictated by: ANGEL BOOTHE MD Dictation date and time: 07/17/25 1637 Primary Care Provider: NO PRIMARY CARE PROVIDER cc: JOSÉ MIGUEL LI MD ~ IMAGING REVIEWED BY EDMD DR. LI WHO AGREES WITH FINDINGS Medical Decision Making Additional information obtaine: N/A Findings Dehydration, altered mental status, cardiac arrhythmias. Differential Dx:Considerations: Include: Alcohol abuse, Anxiety, Bipolar disorder, Conversion disorder, Delirium, Depression, Drug Overdose-Accidental, Drug Overdose-Intentional, Encephalopathy, Hallucinations, Homicidal, Liver failure, Panic disorder, Personality disorder, Renal failure, Respiratory failure, Schizophrenia, Substance abuse, Suicidal attempt, Suidical gesture, Other Departure Disposition: HOME / SELF CARE / HOMELESS Impression: Primary Impression: Medication error Additional Impressions: Generalized weakness Dehydration Condition: Stable Discharge Instructions: Overdose, Accidental Referrals: NO PRIMARY CARE PROVIDER (PCP) Education Educated: Patient Educated regarding: diagnosis, need for follow up, other Signature Scribe Signature: Scribed for José Miguel Li MD by Nancy Woods 07/17/25 16:03 Attestation: The note accurately reflects work and decisions made by me.José Miguel Li MD 07/17/25 15:57 JOSÉ MIGUEL LI MD Jul 17, 2025 15:58
--- NOTE | 2025-07-17 15:59 | ELECTROCARDIOGRAPH REPORT ---
[facility] Test Date: 2025-07-17 Test Time: 15:56:03 Pat Name: THANIA HOBBS Department: [facility]-ER Patient ID: [facility]-[id number] Room: Gender: F Donor Services Coordinator: ANJELICA : 1940 Requested By: JOSÉ MIGUEL COLLIER Order Number: [id number] Reading MD: Dr. José Miguel Collier Measurements Intervals [place] Rate: 114 P: 67 TN: 176 QRS: 20 QRSD: 92 T: 82 QT: 352 QTc: 485 Interpretive Statements Sinus tachycardia Atrial premature complexes Electronically Signed On 07-17-2025 16:11:[address] José Miguel Collier Please click the below link to view image of tracing.
[2025-07-17 16:25] LABS: MEAN PLATELET VOLUME 8.2 FL (7.4-10.4); RED CELL DISTRIBUTION WIDTH 16.0 % (11.5-14.5)
--- NOTE | 2025-07-17 16:35 | RADIOLOGY REPORT ---
CHEST RADIOGRAPH Indication: CHEST PAIN Technique: DI CHEST,SINGLE VIEW COMPARISON: None FINDINGS: The cardiac silhouette is enlarged. The lungs demonstrate bilateral patchy airspace opacities. The pulmonary vasculature is prominent. Small bilateral pleural effusions. Elevation right hemidiaphragm. There is no pneumothorax. IMPRESSION: As above
[2025-07-17 16:47] LABS: CREATININE 1.02 MG/DL (0.40-0.90); ETHANOL < 10 MG/DL (<10); PRO BRAIN NATRIURETIC PEPTIDE 364 PG/ML (0-450); TOTAL CARBON DIOXIDE 26.9 MMOL/L (24-32); eCRCL 37 ML/MIN; eGFR 52 ML/MIN
[2025-07-17 17:28] LABS: APTT 26 SECONDS (22-32); INR 1.1 INR
[2025-07-17 17:40] VITALS: BP 135/82; PULSE 98; RESP 16; O2SAT 93
[2025-07-17] MEDS: normal saline 1000ML IV soln IVB ONE (18:26)
[2025-07-17 18:39] VITALS: TEMP 97.9
== END 2025-07-17 18:47 | disposition home or self-care (01) ==
LOC: ER 15:42
DX: R53.1 Weakness (principal); T43.595A Adverse effect of other antipsychotics and neuroleptics, initial encounter; I10 Essential (primary) hypertension; G89.29 Other chronic pain; F41.9 Anxiety disorder, unspecified; M19.90 Unspecified osteoarthritis, unspecified site; E86.0 Dehydration; Z88.2 Allergy status to sulfonamides; Z88.5 Allergy status to narcotic agent; Z88.8 Allergy status to other drugs, medicaments and biological substances; Z87.442 Personal history of urinary calculi; Z90.49 Acquired absence of other specified parts of digestive tract; Z90.710 Acquired absence of both cervix and uterus; Z60.2 Problems related to living alone; Z87.11 Personal history of peptic ulcer disease; Z87.440 Personal history of urinary (tract) infections; Z79.899 Other long term (current) drug therapy; Y92.89 Other specified places as the place of occurrence of the external cause
CPT/HCPCS: 36415; 71045; 80048; 80320; 83690; 83735; 83880; 84484; 85025; 85610; 85730; 93005; 99285